=== PATIENT | female | born 1990 | race Caucasian/White ===

== ENCOUNTER → 2017-05-03 | Outpatient (CLI) | payer BC, OTHER ==
[2017-05-03 11:53] LABS: BASO % 0.4 % (0.0-1.0); EOS # 0.1 K/mm3 (0.0-0.50); EOS % 0.8 % (0.0-3.0); LARGE UNSTAINED CELL # 0.2 K/mm3 (0.0-0.4); LARGE UNSTAINED CELL % 1.8 % (0.0-4.0); LYMPH % 21.8 % (24.0-44.0); MEAN CORPUSCULAR HGB CONC 35.6 g/dl (32.0-36.5); MEAN CORPUSCULAR VOLUME 89.7 fl (80.0-96.0); MONO # 0.5 K/mm3 (0.0-0.8); MONO % 4.9 % (0.0-5.0); NEUTROPHILS # 6.5 K/mm3 (1.8-7.7); NEUTROPHILS % 70.4 % (36.0-66.0); PLATELET COUNT, AUTOMATED 368 k/mm3 (150-450); RED CELL DISTRIBUTION WIDTH 12.3 % (11.5-14.5); WHITE BLOOD COUNT 9.2 K/mm3 (4.0-10.0)
[2017-05-04 11:43] LABS: HBsAg Prenatal NEGATIVE (NEGATIVE)
== END ==
LOC: M LAB 10:43
PROVIDERS: ATTEND Obstetrics & Gynecology
DX: Z34.81 Encounter for supervision of other normal pregnancy, first trimester (principal)

== ENCOUNTER → 2017-07-19 | Outpatient (CLI) | payer BC, OTHER ==
--- NOTE | 2017-07-20 07:57 | REP ---
COMPLETE OBSTETRICAL ULTRASOUND: CLINICAL: Anatomical evaluation. FINDINGS: Ultrasound examination demonstrates single live intrauterine in variable presentation. Placenta is noted anteriorly and grade 0 without evidence for placenta previa or abruption. Amniotic fluid volume is normal. Cervix measures 4.3 cm in length and appears closed. Gestational age by LMP 18 weeks 4 days with estimated date of delivery 12/16/2017. Gestational age by current measures 19 weeks 2 days with estimated date of delivery 12/11/2017. FHR 144 beats per minute. BPD 4.6 cm 19 weeks 6 days HC 17.0 cm 19 weeks 4 days AC 14.3 cm 19 weeks 5 days FL 3.0 cm 19 weeks 1 day HL 2.8 cm 19 weeks 1 day HC/AC ratio 1.18. Estimated weight 293 grams (80th percentile). Anatomical assessment demonstrates normal cranium, choroid plexus, cavum, cerebellum/posterior fossa, lungs, four chamber heart, diaphragm, stomach, cord insertion/three vessel cord, kidneys/bladder, and extremities. Suboptimal evaluation of the facial profile, cardiac ventricular outflow tracts and spine noted. IMPRESSION: 1. Single live intrauterine in variable presentation demonstrating appropriate interval growth. 2. Anatomical limitations as described above may warrant re-evaluation and followup. No gross abnormalities are identified. Signed by Maynor Briggs MD 07/24/2017 11:07 P
== END ==
LOC: M SMT 13:49
PROVIDERS: ATTEND Advanced Practice Midwife
DX: Z36.2 Encounter for other antenatal screening follow-up (principal)

== ENCOUNTER → 2017-08-22 | Outpatient (CLI) | payer BC, OTHER | LOC: M SMT 12:59 | DX: Z34.82 Encounter for supervision of other normal pregnancy, second trimester (principal); Z3A.23 23 weeks gestation of pregnancy | CPT/HCPCS: 76816 ==

== ENCOUNTER → 2017-09-19 | Outpatient (CLI) | payer BC, OTHER ==
[2017-09-19 14:12] LABS: BASO # 0.1 10^3/uL (0.0-0.2); BASO % 0.5 % (0.0-1.0); EOS # 0.1 10^3/uL (0.0-0.50); EOS % 0.6 % (0.0-3.0); HEMATOCRIT 34.2 % (36.0-47.0); HEMOGLOBIN 11.4 g/dl (12.0-16.0); IMMATURE GRANULOCYTE # 0.3 10^3/uL (0-0); IMMATURE GRANULOCYTE % 2.2 % (0-0); LYMPH # 1.6 10^3/uL (1.5-6.5); LYMPH % 12.2 % (24.0-44.0); MEAN CORPUSCULAR HGB CONC 33.3 g/dl (32.0-36.5); MONO # 0.6 10^3/uL (0.0-0.8); MONO % 4.2 % (0.0-5.0); NEUTROPHILS # 10.7 10^3/uL (1.8-7.7); NEUTROPHILS % 80.3 % (36.0-66.0); PLATELET COUNT, AUTOMATED 286 10^3/uL (150-450); RED CELL DISTRIBUTION WIDTH 13.1 % (11.5-14.5); WHITE BLOOD COUNT 13.3 10^3/uL (4.0-10.0)
[2017-09-19 14:33] LABS: GLUCOSE CHALLENGE TEST 1 HOUR 135 MG/DL (LESS THAN 140)
== END ==
LOC: M LAB 12:05
DX: Z34.82 Encounter for supervision of other normal pregnancy, second trimester (principal)

== ENCOUNTER → 2017-09-23 | Outpatient (CLI) | payer BC, OTHER ==
[2017-09-23 08:09] LABS: GLUCOSE, FASTING 93 MG/DL (LESS THAN 95)
[2017-09-23 08:44] LABS: 1 HR GLUCOSE 120 MG/DL (LESS THAN 180)
[2017-09-23 10:17] LABS: 2 HR GLUCOSE 135 MG/DL (LESS THAN 155)
[2017-09-23 11:32] LABS: 3 HR GLUCOSE 113 MG/DL (LESS THAN 140)
== END ==
LOC: M LAB 07:01
DX: Z34.82 Encounter for supervision of other normal pregnancy, second trimester (principal)

== ENCOUNTER → 2017-11-24 | Outpatient (REF) | payer BC, OTHER | LOC: M LAB REF 17:06 | DX: Z34.83 Encounter for supervision of other normal pregnancy, third trimester (principal) | CPT/HCPCS: 87081 ==

== ENCOUNTER 2017-12-01 13:20 | Inpatient (IN) | payer BC, OTHER ==
[2017-12-01] MEDS: LACTATED RINGER'S 1000 ML IV (14:29)
[2017-12-01] MEDS ORDERED: OXYTOCIN DRIP 30 UNITS in APPROPRIATE DILUENT 1 EA IV (14:30)
[2017-12-01 15:15] LABS: HEMATOCRIT 34.8 % (36.0-47.0); HEMOGLOBIN 12.1 g/dl (12.0-15.5); MEAN CORPUSCULAR HEMOGLOBIN 29.7 pg (27.0-33.0); MEAN CORPUSCULAR HGB CONC 34.8 g/dl (32.0-36.5); MEAN CORPUSCULAR VOLUME 85.5 fl (80.0-96.0); PLATELET COUNT, AUTOMATED 306 10^3/uL (150-450); RED BLOOD COUNT 4.07 10^6/uL (4.00-5.40); RED CELL DISTRIBUTION WIDTH 14.4 % (11.5-14.5); WHITE BLOOD COUNT 15.3 10^3/uL (4.0-10.0)
[2017-12-01] MEDS: PROMETHAZINE INJ 25 MG/ML VIAL (J2550) IV (20:32)
[2017-12-01] MEDS: BUTORPHANOL 2 MG/ML INJ (J0595) IV (20:34)
[2017-12-01] MEDS: LR 1,000 ML IV (22:18)
[2017-12-02] MEDS ORDERED: ONDANSETRON 4MG/2ML VIAL (J2405) IV
[2017-12-02] MEDS ORDERED: ACETAMINOPHEN 500 MG TAB PO
[2017-12-02] MEDS ORDERED: DIBUCAINE 1% OINTMENT 30GM TOP
[2017-12-02] MEDS ORDERED: PROMETHAZINE 25 MG TAB PO
[2017-12-02] MEDS ORDERED: DOCUSATE SODIUM 100 MG CAP PO
[2017-12-02] MEDS: OXYTOCIN DRIP 30 UNITS in APPROPRIATE DILUENT 1 EA IV (00:33)
[2017-12-02] MEDS: LIDOCAINE 1% MDV 20ML VIAL INFIL (00:34)
[2017-12-02] MEDS: IBUPROFEN 800 MG TAB PO (02:13)
[2017-12-02] MEDS: PRENATAL VITAMINS CHEWABLE TABLET PO (08:10)
[2017-12-02] MEDS: RHOGAM 300 MCG (1500 IU) INJ (J2790) IM (21:39)
[2017-12-02] MEDS: MEASLES,MUMPS,RUBELLA VACCINE INJ (MMR-II) (90707) SC (21:39)
[2017-12-03] MEDS: PRENATAL VITAMINS CHEWABLE TABLET PO (07:47)
== END 2017-12-03 10:00 | disposition home or self-care (01) | DRG 560 ==
LOC: M LDI 13:20 → M OBS 12-02 01:43
PROVIDERS: Obstetrics & Gynecology
PROC: 10E0XZZ Delivery of Products of Conception, External Approach (ICD-10-PCS; principal; 2017-12-02)
PROC: 0KQM0ZZ Repair Perineum Muscle, Open Approach (ICD-10-PCS; 2017-12-02)
DX: O42.02 Full-term premature rupture of membranes, onset of labor within 24 hours of rupture (principal); Z3A.37 37 weeks gestation of pregnancy; Z37.0 Single live birth; O70.1 Second degree perineal laceration during delivery

== ENCOUNTER → 2019-05-08 | Outpatient (CLI) | payer OTHER ==
[~2019-05-08] MED LIST: MOTR200T44 PO; PRENTAB9 PO; TYLE500T78 PO; ZANT150T40 PO
[2019-05-08 09:12] LABS: BASO % 0.4 % (0.0-1.0); EOS # 0.1 10^3/uL (0.0-0.5); EOS % 1.1 % (0.0-3.0); HEMATOCRIT 42.9 % (36.0-47.0); HEMOGLOBIN 14.4 g/dl (12.0-15.5); LYMPH # 2.3 10^3/uL (1.5-5.0); LYMPH % 31.8 % (24.0-44.0); MEAN CORPUSCULAR HEMOGLOBIN 30.1 pg (27.0-33.0); MEAN CORPUSCULAR HGB CONC 33.6 g/dl (32.0-36.5); MEAN CORPUSCULAR VOLUME 89.6 fl (80.0-96.0); MONO # 0.4 10^3/uL (0.0-0.8); MONO % 5.9 % (0.0-5.0); NEUTROPHILS # 4.4 10^3/uL (1.5-8.5); NEUTROPHILS % 60.4 % (36.0-66.0); PLATELET COUNT, AUTOMATED 322 10^3/uL (150-450); RED BLOOD COUNT 4.79 10^6/uL (4.00-5.40); WHITE BLOOD COUNT 7.4 10^3/uL (4.0-10.0)
[2019-05-08 09:54] LABS: ALBUMIN 4.1 GM/DL (3.2-5.2); ALT/SGPT 21 U/L (12-78); BILIRUBIN,TOTAL 0.5 MG/DL (0.2-1.0); BLOOD UREA NITROGEN 11 MG/DL (7-18); CALCIUM LEVEL 9.3 MG/DL (8.5-10.1); CARBON DIOXIDE LEVEL 24 MEQ/L (21-32); CHLORIDE LEVEL 107 MEQ/L (98-107); CREATININE FOR GFR 0.79 MG/DL (0.55-1.30); FOLATE > 24.0 NG/ML; FREE T4 0.86 NG/DL (0.76-1.46); GLOMERULAR FILTRATION RATE > 60.0 (>60); GLUCOSE, FASTING 92 MG/DL (70-100); POTASSIUM SERUM 4.1 MEQ/L (3.5-5.1); SODIUM LEVEL 139 MEQ/L (136-145); TOTAL PROTEIN 7.7 GM/DL (6.4-8.2); VITAMIN B12 LEVEL 536 PG/ML
== END ==
LOC: M LAB 08:41
PROVIDERS: ATTEND Physician Assistant
DX: Z13.29 Encounter for screening for other suspected endocrine disorder (principal)

== ENCOUNTER → 2019-06-30 | Outpatient (CLI) | payer OTHER ==
--- NOTE | 2019-06-30 13:44 | ECHO ---
DATE OF PROCEDURE: 06/30/2019 REFERRING PHYSICIAN: NATALIIA Estes INDICATION: Positive genetic markers for dilated cardiomyopathy. Height 156 cm, weight 66 kg. DIMENSIONS: IVS: 0.8 LV: 4.4 LVPW: 0.8 LA: 2.8 Aorta: 2.3 RV: 2.5 IVC: 1.9 Mitral E wave velocity: 82 A wave: 57 E prime: 9.6 E prime septal : 9.6 E prime lateral: 14.9 FINDINGS: The study is of good technical quality. The patient is in sinus rhythm. Left ventricle is normal size and systolic function, estimated left ventricular ejection fraction (LVEF) 55-60%. Right ventricle is also normal size and systolic function. Both atria appear normal. All four cardiac valves were well seen and appear normal. No pericardial effusion is noted. Inferior vena cava is normal size. Aortic root, aortic arch and visualized segment of abdominal aorta all appear normal. Doppler interrogation reveals no aortic stenosis or insufficiency. Same applies for mitral valve. There is trace tricuspid and trace pulmonic insufficiency. Mitral inflow pattern and tissue Doppler imaging of mitral annulus revealed normal diastolic function of left ventricle. CONCLUSIONS: 1. Study is of good technical quality. 2. Normal left ventricular (LV) size, systolic and diastolic function. 3. No valvular disease. 4. Normal central venous pressure. 5. Unable to estimate pulmonary artery pressure but no signs to suggest pulmonary hypertension. 6. Normal echocardiogram. COMMENT: Subacute bacterial endocarditis (SBE) prophylaxis is not recommended.
== END ==
LOC: M CARPUL 09:21
PROVIDERS: ATTEND Physician Assistant
DX: Z15.89 Genetic susceptibility to other disease (principal)

== ENCOUNTER → 2020-03-26 | Outpatient (CLI) | payer OTHER | LOC: M LABSMTC 12:00 | PROVIDERS: ATTEND Pediatrics | DX: Z11.59 Encounter for screening for other viral diseases (principal) ==

== ENCOUNTER → 2020-08-11 | Outpatient (REF) | payer SELFPAY | LOC: M LABSMTC 10:46 → EDSTATUS 10:55 → M LABSMTC 15:59 | PROVIDERS: ATTEND Pediatrics | DX: Z20.828 Contact with and (suspected) exposure to other viral communicable diseases (principal) ==

== ENCOUNTER → 2021-05-24 | Outpatient (REF) | LOC: M EMP 09:25 | PROVIDERS: ATTEND Nurse Practitioner Adult Health | DX: Z11.52 Encounter for screening for COVID-19 (principal) ==

== ENCOUNTER → 2022-09-13 | Outpatient (REF) | payer OTHER, BC | LOC: M SFHCWAGY 16:53 | PROVIDERS: ATTEND Advanced Practice Midwife | DX: Z12.4 Encounter for screening for malignant neoplasm of cervix (principal) ==